=== PATIENT | female | born 1960 | race Caucasian/White ===

== ENCOUNTER 2017-03-06 11:45 | Day surgery (SDC) | payer BC ==
[~2017-03-06] VITALS: Ht 167.6 cm; Wt 68.2 kg
[~2017-03-06 11:45] MED LIST: VITA80005; [UNRECOGNIZED DRUG - CODE]
[2017-03-06 12:22] VITALS: Ht 167.6 cm; Wt 68.2 kg
[2017-03-06] MEDS ORDERED: OXYCODONE (12:36)
[2017-03-06 13:31] VITALS: BP 143/65; PULSE 55; RESP 12
[2017-03-06] MEDS ORDERED: LIDOCAINE 2% JELLY 5 ML ONE ×8 (13:41→13:43)
--- NOTE | 2017-03-06 14:10 | OPPN ---
Date/Time of Note Date/Time of Note DATE: 03/06/17 TIME: 14:03 Operative Report Free Text/Dictation Send this copy to Dr. Ivan tafoya #[id number] Follow-up as outpatient in 2 weeks Preoperative Diagnosis Rectal pain anal fissure suspected Postoperative Diagnosis External hemorrhoids grade 2 small tear in the anal area Anal sphincter spasm Poor prep Operation/Procedure Performed Colonoscopy Provider: PROMISE WILSON MD Anesthesia Type: moderate sedation (Versed 4 mg/fentanyl 100 mcg/total time 25 minutes) Estimated blood loss: none Transfusion Required: no Specimen: none Grafts/Implants: none Complications: no PROMISE WILSON MD Mar 06, 2017 14:10
[2017-03-06] MEDS ORDERED: FENTAnyl 50 MCG/ML VIAL ONE (14:14)
[2017-03-06] MEDS ORDERED: MIDAZOLAM 1 MG/ML 2 ML INJ ONE ×2 (14:15)
[2017-03-06 14:25] VITALS: BP 131/83; PULSE 50; RESP 14
--- NOTE | 2017-03-06 17:02 | GILP ---
DATE OF PROCEDURE: 03/06/2017 PREOPERATIVE DIAGNOSIS: Rectal pain, with suspected anal fissure. PROCEDURE PERFORMED: Colonoscopy up to right colon. POSTOPERATIVE DIAGNOSIS: 1. Poor prep in the right colon and left colon, but very poor prep in the right colon. Left colon was cleared with lavage. Right colon could not be cleaned with lavage. 2. Anal hemorrhoids, grade 2, with a small fissure tear in the anal canal. 3. Anal sphincteric spasm. DESCRIPTION OF PROCEDURE: Patient was put in left lateral decubitus after obtaining informed consent; 4 mg IV Versed and 100 mcg of fentanyl were given. Rectal exam done. External hemorrhoids noted, grade 2, and anal fissure was noted. Due to the anal spasm, I could not get a good picture. Advanced the Olympus video colonoscope all the way to the right colon. On the way, I had to lavage continuously the left colon, which was more fluid. It was suctioned off. Otherwise unremarkable, but right colon I could not lavage and clean. Ileocecal valve identified. Cecum and ascending colon partially examined, only about 50 percent. Left colon and mid colon unremarkable. Rectum is normal, except for external hemorrhoids. Upon removal of the scope, patient had no complication. RECOMMENDATION: I think she needs to have a barium enema in future. Anal suppositories will be given. I advised her to see [facility] developer for external hemorrhoidectomy if the pain continues. Dictated By: Eddie Dorsey MD /lorin/ciara /Document#: [id number] CC: Eddie Dorsey MD; SHRADDHA CHAVEZ MD;*[facility]*
== END 2017-03-06 15:53 | disposition home or self-care (01) ==
LOC: GIL 11:45
PROVIDERS: ATTEND Internal Medicine
DX: K60.2 Anal fissure, unspecified (principal); K64.1 Second degree hemorrhoids; E78.5 Hyperlipidemia, unspecified
CPT/HCPCS: 45378; J2250; J3010